=== PATIENT | male | born 1970 | race Caucasian/White ===

== ENCOUNTER 2020-03-12 15:50 | Inpatient (IN) ==
[2020-03-12 19:08] LABS: Basophils # 0.1 10*3/uL (0.0-0.2); Basophils % 0.3 % (0.0-0.8); Eosinophils # 0.2 10*3/uL (0.0-0.87); Eosinophils % 1.1 % (0.00-10.9); Hematocrit 55.7 VOL% (42.0-52.0); Hemoglobin 19.5 GM/DL (14.0-18.0); Immature Granulocytes % 0.6 %; Immature Granulocytes Absolute 0.09 #; Lymphocytes # 3.2 10*3/uL (1.4-4.0); Mean Corpuscular Volume 89.1 FL (87-102); Mean Platelet Volume 10.3 FL (9.6-12.0); Monocytes % 7.8 % (1.7-12.7); Neutrophils % 70.2 % (38.7-73.9); Platelet Count 415 T/CUMM (130-400); Red Blood Count 6.25 MC/CUMM (3.8-5.5); Red Cell Distribution Width 13.2 % (9.3-17.3); White Blood Count 16.2 T/CUMM (4-12)
[2020-03-12 19:31] LABS: Albumin 4.8 G/DL (3.4-5.0); Calcium 9.6 MG/DL (8.5-10.1); Osmolality,Calculated 275.7 MOS/KG (273-304); Total Protein 8.6 G/DL (6.4-8.3)
[2020-03-12] MEDS ORDERED: PIPERACILLIN/TAZOBACTAM 3,375 MG in SODIUM CHLORIDE 0.9% 100 ML IV STA (20:15)
[2020-03-12] MEDS ORDERED: ONDANSETRON 4 MG/2 ML VIAL IV ONE (20:16)
[2020-03-12] MEDS ORDERED: ONDANSETRON 4 MG/2 ML VIAL ONE (20:17)
[2020-03-12] MEDS ORDERED: MORPHINE 4 MG/1 ML VIAL IV STA ×2 (20:22→21:12)
[2020-03-12] MEDS ORDERED: GLUCAGON 1 MG VIAL IM PRN (21:15)
[2020-03-12] MEDS ORDERED: hydrALAZINE 20 MG/1 ML VIAL IV PRN (21:15)
[2020-03-12] MEDS ORDERED: DEXTROSE 50% 25 GM/50 ML VIAL IV PRN (21:15)
[2020-03-12 21:24] LABS: Bacteria,Urine Occasional /HPF (Few); Bilirubin,Urine Negative (Negative); Blood, Urine Moderate mg/dL (Negative); Calcium Oxalate Crystals,Urine Occasional /HPF (Few); Glucose,Urine (UA) Negative (Negative); Hyaline Casts,Urine 3 /LPF (0-3); Ketones,Urine Negative (Negative); Mucus,Urine Few /LPF (Occasional); Nitrite,Urine Negative (Negative); Protein,Urine 100 MG/DL; RBC,Urine 49 /HPF (0-4); Urine Appearance CLEAR (Clear); Urine Color Amber (Yellow); Urine Specific Gravity 1.046 (1.001-1.035); Urine Urobilinogen < 2.0 EU/DL (0.2-1.0); WBC,Urine 6 /HPF (0-6)
[2020-03-12] MEDS ORDERED: ENOXAPARIN 40 MG/0.4 ML SYRINGE SUBCUT SCH (21:30)
[2020-03-12] MEDS: ONDANSETRON 4 MG/2 ML VIAL IV PRN (23:46)
[2020-03-12] MEDS: MORPHINE 4 MG/1 ML VIAL IV PRN (23:47)
[2020-03-12] MEDS: SODIUM CHLORIDE 0.9% 1,000 ML IV SCH (23:58)
[2020-03-13] MEDS: MORPHINE 4 MG/1 ML VIAL IV PRN ×4 (04:49→21:38)
[2020-03-13 05:56] LABS: Basophils # 0.1 10*3/uL (0.0-0.2); Basophils % 0.4 % (0.0-0.8); Eosinophils # 0.3 10*3/uL (0.0-0.87); Eosinophils % 2.1 % (0.00-10.9); Hematocrit 51.7 VOL% (42.0-52.0); Immature Granulocytes % 0.5 %; Immature Granulocytes Absolute 0.07 #; Lymphocytes # 2.7 10*3/uL (1.4-4.0); Lymphocytes % 17.8 % (21.2-54.2); Mean Corpuscular HGB Conc 33.8 GM/DL (32-36); Mean Corpuscular Volume 91.3 FL (87-102); Mean Platelet Volume 10.7 FL (9.6-12.0); Neutrophils % 70.2 % (38.7-73.9); Platelet Count 353 T/CUMM (130-400); Red Blood Count 5.66 MC/CUMM (3.8-5.5); Red Cell Distribution Width 13.4 % (9.3-17.3)
[2020-03-13 06:29] LABS: Calcium 8.4 MG/DL (8.5-10.1); Hemoglobin 17.5 GM/DL (14.0-18.0); Osmolality,Calculated 279.5 MOS/KG (273-304)
[2020-03-13] MEDS ORDERED: INFLUENZA VIRUS VACCINE 0.5 ML SYRINGE IM ONE (09:00)
[2020-03-13] MEDS: PHENOL 1.4% THROAT SPRAY 177 ML BOTTLE PO PRN ×2 (09:57→21:15)
[2020-03-13] MEDS: ONDANSETRON 4 MG/2 ML VIAL IV PRN (09:58)
[2020-03-13] MEDS: SODIUM CHLORIDE 0.9% 1,000 ML IV SCH ×2 (17:05→18:36)
[2020-03-13] MEDS: PANTOPRAZOLE 40 MG VIAL IV SCH ×2 (17:06→21:12)
[2020-03-14] MEDS: SODIUM CHLORIDE 0.9% 1,000 ML IV SCH ×3 (01:35→16:10)
[2020-03-14] MEDS: MORPHINE 4 MG/1 ML VIAL IV PRN ×4 (02:56→20:43)
[2020-03-14 07:53] LABS: Basophils % 0.4 % (0.0-0.8); Eosinophils # 0.3 10*3/uL (0.0-0.87); Eosinophils % 3.3 % (0.00-10.9); Hematocrit 45.1 VOL% (42.0-52.0); Hemoglobin 15.2 GM/DL (14.0-18.0); Immature Granulocytes % 0.6 %; Immature Granulocytes Absolute 0.06 #; Lymphocytes # 2.1 10*3/uL (1.4-4.0); Lymphocytes % 20.9 % (21.2-54.2); Mean Corpuscular HGB Conc 33.7 GM/DL (32-36); Mean Corpuscular Volume 92.2 FL (87-102); Mean Platelet Volume 10.6 FL (9.6-12.0); Monocytes % 9.3 % (1.7-12.7); Neutrophils % 65.5 % (38.7-73.9); Platelet Count 290 T/CUMM (130-400); Red Blood Count 4.89 MC/CUMM (3.8-5.5); Red Cell Distribution Width 13.5 % (9.3-17.3)
[2020-03-14 08:26] LABS: Calcium 8.2 MG/DL (8.5-10.1); Osmolality,Calculated 283.1 MOS/KG (273-304)
[2020-03-14] MEDS: PANTOPRAZOLE 40 MG VIAL IV SCH ×2 (09:03→20:45)
[2020-03-15] MEDS: SODIUM CHLORIDE 0.9% 1,000 ML IV SCH (03:08)
[2020-03-15 06:22] LABS: Osmolality,Calculated 277.4 MOS/KG (273-304)
[2020-03-15] MEDS: PANTOPRAZOLE 40 MG VIAL IV SCH (08:44)
[2020-03-15] MEDS ORDERED: POTASSIUM CHLORIDE 20 MEQ TABLET PO ONE (09:00)
[2020-03-15 11:37] VITALS: BP 133/78
== END 2020-03-15 13:00 | disposition home or self-care (01) | DRG 389 ==
LOC: N.ED 15:50 → N.EDINP 21:15 → N.3E 23:17
PROVIDERS: ADMIT Internal Medicine; ATTEND Internal Medicine